=== PATIENT | female | born 1955 | race Caucasian/White ===

== ENCOUNTER 2020-05-12 20:14 | Emergency (ER) | payer OTHER, SELFPAY ==
[~2020-05-12] VITALS: Ht 157.5 cm; Wt 54.2 kg
--- NOTE | 2020-05-12 21:01 | NUR ---
ERP AT BEDSIDE TO ASSESS PT AND DISCUSS POC
[2020-05-12 21:02] VITALS: BP 114/60
[2020-05-12] MEDS ORDERED: LORazepam 0.5MG TABLET ONE (21:12)
--- NOTE | 2020-05-12 21:17 | NUR ---
PT MEDICATED PER JAN 04 RIGHTS VERIFIED
[2020-05-12] MEDS ORDERED: LORazepam 0.5MG TABLET PO ONE (21:30)
--- NOTE | 2020-05-12 22:00 | NUR ---
Patient/Caregiver given discharge instructions and they have confirmed that they understand the instructions. Patient ambulatory with steady gait.
== END 2020-05-12 22:04 | disposition home or self-care (01) ==
LOC: ED 21:19
DX: F41.1 Generalized anxiety disorder (principal); R07.0 Pain in throat; M54.2 Cervicalgia; R00.0 Tachycardia, unspecified; I10 Essential (primary) hypertension; J44.9 Chronic obstructive pulmonary disease, unspecified; Z87.891 Personal history of nicotine dependence
CPT/HCPCS: 93005; 99283